=== PATIENT | male | born 1950 | race African-American/Black ===

== ENCOUNTER 2018-12-09 10:29 | Inpatient (IN) | payer MEDICARE, OTHER ==
[2018-12-09] VITALS (405 sets, daily range): BP systolic 117–157; BP diastolic 96–113; PULSE 99–114; TEMP 97.7–98; O2SAT 80–99
[~2018-12-09] VITALS: Ht 185.4 cm; Wt 111.0 kg
[2018-12-09 10:44] LABS: BASO % 0.5 % (0.0-2.0); EOS # 0.1 (0.0-0.7); GRAN % 45.2 % (42.2-75.2); HEMATOCRIT 44.3 % (42.0-52.0); HEMOGLOBIN 14.4 g/dl (13.5-18.0); LYMPH # 2.4 (1.2-3.4); LYMPH % 36.7 % (20.0-51.0); MEAN CELL VOLUME 78 fl (80.0-100.0); MEAN CORPUSCULAR HEMOGLOBIN 25 pg (27.0-31.0); MEAN CORPUSCULAR HGB CONC 33 g/dl (33.0-37.0); MEAN PLATELET VOLUME 11.9 fl (7.4-10.4); MONO % 15.1 % (1.7-9.3); PLATELET COUNT 190 K/mm3 (130-400); RED BLOOD COUNT 5.66 M/mm3 (4.20-5.60)
[2018-12-09 10:50] LABS: INR 1.3 (0.8-3.0); PROTHROMBIN TIME 14.8 SECONDS (9.7-12.8)
[2018-12-09 11:02] LABS: ALBUMIN 4.3 gm/dL (3.5-5.0); BILIRUBIN,TOTAL 1.4 mg/dL (0.0-1.0); CALCIUM 9.4 mg/dL (8.4-10.2); CREATININE, serum 1.01 (0.66-1.25); POTASSIUM 4.8 mmol/L (3.4-5.0); TOTAL PROTEIN 7.2 gm/dL (6.4-8.2)
[2018-12-09 11:26] LABS: TROPONIN-I 0.235 ng/mL (0.000-0.035)
[2018-12-09 11:32] LABS: TSH w REFLEX 0.857 uIU/mL (0.465-4.680)
[2018-12-09 12:52] LABS: COLLECTION METHOD CLEAN CATCH
[2018-12-09 13:22] LABS: MUCOUS Present /lpf; PH 5 (5-8); SQUAMOUS EPITHELIAL 0-2 /hpf; URINE APPEARANCE Clear; URINE BACTERIA None Seen /hpf; URINE BILIRUBIN Negative (NEGATIVE); URINE BLOOD Negative (NEGATIVE); URINE COLOR Yellow; URINE GLUCOSE Negative (NEGATIVE); URINE KETONE Negative (NEGATIVE); URINE LEUKOCYTE ESTERASE Negative (NEGATIVE); URINE NITRATE Negative (NEGATIVE); URINE PROTEIN(semi-quant) Negative (NEGATIVE); URINE RBC 0-2 /hpf; URINE UROBILINOGEN Negative (NEGATIVE)
--- NOTE | 2018-12-09 14:00 | NUR ---
PAGED DR VALDEZ TO NOTIFY HIM OF CARDIOLOGY CONSULT. AWAITING CALL BACK.
--- NOTE | 2018-12-09 14:31 | NUR ---
NOTIFIED DR VALDEZ OF CARDIOLOGY CONSULT
--- NOTE | 2018-12-09 15:30 | NUR ---
ANESTHESIA NOTIFIED OF CONSULT FOR FLY CARDIOVERSION IN AM AT 0800.
[2018-12-10] VITALS (291 sets, daily range): BP systolic 94–142; BP diastolic 61–97; PULSE 50–120; TEMP 97.9–98.9; O2SAT 75–100
[2018-12-10 06:27] LABS: BASO # 0.1 (0.0-0.2); BASO % 0.7 % (0.0-2.0); EOS # 0.1 (0.0-0.7); EOS % 1.9 % (0-4.0); GRAN # 3.8 (1.4-6.5); GRAN % 51.8 % (42.2-75.2); HEMATOCRIT 42.5 % (42.0-52.0); HEMOGLOBIN 13.9 g/dl (13.5-18.0); LYMPH # 2.1 (1.2-3.4); LYMPH % 28.2 % (20.0-51.0); MEAN CELL VOLUME 77 fl (80.0-100.0); MEAN CORPUSCULAR HEMOGLOBIN 25 pg (27.0-31.0); MEAN CORPUSCULAR HGB CONC 33 g/dl (33.0-37.0); MEAN PLATELET VOLUME 12.3 fl (7.4-10.4); MONO # 1.2 (0.1-0.6); MONO % 17.1 % (1.7-9.3); PLATELET COUNT 189 K/mm3 (130-400); RED BLOOD COUNT 5.52 M/mm3 (4.20-5.60); REDCELL DISTRIBUTION WIDTH-CV 17.7 % (11.5-14.5)
[2018-12-10 06:52] LABS: CALCIUM 9.2 mg/dL (8.4-10.2); CREATININE, serum 0.91 (0.66-1.25)
--- NOTE | 2018-12-10 08:00 | NUR ---
Shift assessment complete at this time. Plan of care reviewed with patient at bedside. Additional time taken to address any other needs or concerns. Vitals stable at this time. Pt denies pain or any other discomfort. Bed in low position, call light within reach. will continue to monitor.
--- NOTE | 2018-12-10 08:40 | NUR ---
FLY Cardioversion procedure complete at this time. Pt tolerated procedure well with no changes in vitals signs noted. 200 mg of propofol used for sedation by Scott Osborn CRNA. Time-out performed prior to procedure. Consent and pt identification verified. After FLY, Pt had attempted cardioversion x2 with no conversion. Amiodarone bolus of 150 mg started per direction of Dr. Li. Will continue to monitor.
--- NOTE | 2018-12-10 15:03 | NUR ---
YENIFER met with the patient to discuss discharge plan. The patient lives alone in [place]. He reports independence with ADLs and does not have any DME. The patient does not have a PCP, but was interested in being set up with one in [place]. YENIFER provided the patient with a list of the different providers in [place]. He states that he has not needed to be on medications in the past, but plans to utilize the [facility] in [place]. He does not anticipate any difficulties obtaining his meds. The patient does not have advanced directives, but he states that he is working on getting them completed. He states that he is thinking about designating his family friend, Jeanie Armando (ph#[phone]). He states that she lives in [place]. He states that he has five siblings and that they all live out of state. His sister, Janice Johnson (ph#[phone]), is listed as his next of kin. He states that she lives near [place]. The patient plans to return home upon discharge. YENIFER to continue to follow to assist with getting established with a PCP.
--- NOTE | 2018-12-10 18:25 | NUR ---
Pt up to floor this afternoon from ICU, med rec complete, no C/O pain this afternoon, VS have remained stable.
--- NOTE | 2018-12-10 20:40 | NUR ---
Sitting at bedside. Assessment complete. Lungs clear. Heart sounds irregular but normal pace. Bowels active x4. Pulses present throughout. Bilateral lower leg edema +1. Denies pain. Denies other needs at this time. Call light in reach.
[2018-12-11] VITALS (7 sets, daily range): BP systolic 102–169; BP diastolic 49–91; PULSE 76–120; TEMP 98.2–98.8
--- NOTE | 2018-12-11 00:43 | NUR ---
Telemetry called stating patient pulse in 130s. Patient up in room brushing teeth. Patient returned to bed. Pulse returned to low 100s. Denies needs at this time. call light in reach.
--- NOTE | 2018-12-11 05:24 | NUR ---
Patient had x1 episode of tachycardia due to up performing personal hygiene. Otherwise uneventful night. Resting in bed this AM. Call light in reach.
--- NOTE | 2018-12-11 06:39 | NUR ---
Report given to ELVIA Oliva
[2018-12-11 07:07] LABS: BASO % 0.5 % (0.0-2.0); EOS # 0.2 (0.0-0.7); EOS % 3.2 % (0-4.0); GRAN # 2.7 (1.4-6.5); GRAN % 43.3 % (42.2-75.2); HEMATOCRIT 44.6 % (42.0-52.0); HEMOGLOBIN 14.6 g/dl (13.5-18.0); LYMPH # 2.3 (1.2-3.4); LYMPH % 36.5 % (20.0-51.0); MEAN CELL VOLUME 77 fl (80.0-100.0); MEAN CORPUSCULAR HEMOGLOBIN 25 pg (27.0-31.0); MEAN CORPUSCULAR HGB CONC 33 g/dl (33.0-37.0); MEAN PLATELET VOLUME 12.9 fl (7.4-10.4); MONO % 16.2 % (1.7-9.3); PLATELET COUNT 214 K/mm3 (130-400); REDCELL DISTRIBUTION WIDTH-CV 18.1 % (11.5-14.5)
[2018-12-11 07:38] LABS: CALCIUM 9.4 mg/dL (8.4-10.2); CREATININE, serum 1.11 (0.66-1.25); POTASSIUM 4.1 mmol/L (3.4-5.0)
--- NOTE | 2018-12-11 10:04 | NUR ---
Initial visit; Patient thanked Secondary Education Professor for looking in on him, listening and offering God's blessings.
--- NOTE | 2018-12-11 10:11 | NUR ---
Pt awake and alert upon entry, some C/O pain, shift assessments complete, left pt call light in reach.
--- NOTE | 2018-12-11 16:14 | NUR ---
YENIFER met with the patient to follow up on preference for PCP. The patient states that he would prefer Dr. Fay. YENIFER contacted [facility]. The clinic receptionist reports that Dr. Fay is not taking any new Medicare patient's at this time. YENIFER informed the patient. The patient then preferred Dr. Quinn. YENIFER contacted [facility] and secured the patient an appointment with Dr. Quinn for 12/23 at 1000. YENIFER informed the patient's DEREJE, Brandi, and the community relations assistant of appointment. YENIFER presented and explained the IM form to the patient. The patient verbalized understanding, signed, and he was provided a copy. No other additional needs at this time.
--- NOTE | 2018-12-11 18:00 | NUR ---
Pt resting in room, no C/O pain today, VS have remained stable
--- NOTE | 2018-12-11 20:50 | NUR ---
Sitting at bedside. Assessment complete. Lungs clear. Heart sounds irregular and tachy-patient in Afib on telemetry. Bowels active x4. Pulses strong throughout. Bilateral lower leg edema +1 present. INT left AC without complications. Denies pain. Denies needs at this time. Call light in reach.
[2018-12-12] VITALS (7 sets, daily range): BP systolic 97–115; BP diastolic 69–86; PULSE 73–96
--- NOTE | 2018-12-12 00:34 | NUR ---
Resting in bed. Denied needs. Call light in reach.
--- NOTE | 2018-12-12 05:48 | NUR ---
Patient had uneventful night. Telemetry remained in afib with pulse 100 to 110s. Resting in bed this AM. Call light in reach.
[2018-12-12 06:23] LABS: BASO % 0.7 % (0.0-2.0); EOS # 0.3 (0.0-0.7); EOS % 5.1 % (0-4.0); GRAN # 2.1 (1.4-6.5); GRAN % 35.1 % (42.2-75.2); HEMOGLOBIN 14.6 g/dl (13.5-18.0); LYMPH # 2.5 (1.2-3.4); LYMPH % 41.7 % (20.0-51.0); MEAN CELL VOLUME 75 fl (80.0-100.0); MEAN CORPUSCULAR HEMOGLOBIN 25 pg (27.0-31.0); MEAN CORPUSCULAR HGB CONC 33 g/dl (33.0-37.0); MEAN PLATELET VOLUME 11.9 fl (7.4-10.4); MONO % 17.1 % (1.7-9.3); PLATELET COUNT 245 K/mm3 (130-400); RED BLOOD COUNT 5.84 M/mm3 (4.20-5.60); REDCELL DISTRIBUTION WIDTH-CV 18.3 % (11.5-14.5)
[2018-12-12 06:26] LABS: INR 1.5 (0.8-3.0); PROTHROMBIN TIME 18.2 SECONDS (9.7-12.8)
[2018-12-12 06:29] LABS: PARTIAL THROMBOPLASTIN TIME 29.3 SECONDS (26.0-37.0)
[2018-12-12 06:40] LABS: CALCIUM 9.3 mg/dL (8.4-10.2); CREATININE, serum 1.15 (0.66-1.25); POTASSIUM 4.2 mmol/L (3.4-5.0)
--- NOTE | 2018-12-12 06:46 | NUR ---
Report given to ELVIA Oliva
[2018-12-12] MEDS ORDERED: ELIQUIS 5MG PO (07:52)
[2018-12-12] MEDS ORDERED: ZESTRIL 5MG5 MG PO (07:53)
[2018-12-12] MEDS ORDERED: BETAPACE 120MG120 MG PO (07:53)
--- NOTE | 2018-12-12 08:42 | NUR ---
Pt awake and alert upon entry, no C/O pain at this time, shift assessments complete, left Pt call light in reach, bed in lowest position.
[2018-12-12] MEDS ORDERED: LASIX 20MG TABL20 MG PO (11:29)
--- NOTE | 2018-12-12 15:18 | NUR ---
Pt discharged to home, escorted to entrance, leaving via taxi.
--- NOTE | 2018-12-12 15:21 | NUR ---
Material Carrier contacted [employer] to assist in establishing transportation back to patient's vehicle. No additional concerns at this time.
== END 2018-12-12 15:20 | disposition home or self-care (01) | DRG 281 ==
LOC: COL.ER 10:29 → ICU 12:07 → MEDICAL 12:07
PROVIDERS: Emergency Medicine; Physician Assistant; ADMIT Hospitalist
PROC: 5A2204Z Restoration of Cardiac Rhythm, Single (ICD-10-PCS; principal; 2018-12-10)
PROC: 5A2204Z Restoration of Cardiac Rhythm, Single (ICD-10-PCS; 2018-12-12)
DX: I48.91 Unspecified atrial fibrillation (principal); I21.A1 Myocardial infarction type 2; I50.20 Unspecified systolic (congestive) heart failure; E01.0 Iodine-deficiency related diffuse (endemic) goiter; I11.0 Hypertensive heart disease with heart failure; I08.1 Rheumatic disorders of both mitral and tricuspid valves; J39.8 Other specified diseases of upper respiratory tract; Z87.891 Personal history of nicotine dependence
CPT/HCPCS: 99222-AI; 99231-AI; 99233-AI; A9284; J0282; J1940; J2704; J7030; J7060; Q9967

== ENCOUNTER 2018-12-29 07:12 | Day surgery (SDC) | payer MEDICARE, OTHER ==
[~2018-12-29] VITALS: Ht 185.5 cm; Wt 106.0 kg
[~2018-12-29 07:12] MED LIST: BETAPACE 120MG120 MG PO; ELIQUIS 5MG PO; LASIX 20MG TABL20 MG PO; ZESTRIL 5MG5 MG PO
[2018-12-29] MEDS ORDERED: PRINIVIL5 MG PO (07:52)
[2018-12-29] MEDS ORDERED: LASIX 20MG TABL20 MG PO (07:52)
[2018-12-29] MEDS ORDERED: ELIQUIS 5MG PO (07:52)
[2018-12-29] MEDS ORDERED: BETAPACE 120MG120 MG PO (07:53)
[2018-12-29 07:59] VITALS: BP 129/94; PULSE 65; TEMP 97.6
[2018-12-29] MEDS ORDERED: BETAPACE160 MG PO (08:32)
--- NOTE | 2018-12-29 09:19 | NUR ---
Pt is in SR per Dr. Li. CV and labs cancelled. Pt discharged per ambulation with friend Cielo Kong.
== END 2018-12-29 09:22 | disposition home or self-care (01) ==
LOC: COL.CAR 07:12
DX: I48.0 Paroxysmal atrial fibrillation (principal); I10 Essential (primary) hypertension; I08.0 Rheumatic disorders of both mitral and aortic valves; Z79.01 Long term (current) use of anticoagulants; Z87.891 Personal history of nicotine dependence; Z80.9 Family history of malignant neoplasm, unspecified

== ENCOUNTER → 2022-05-10 | Outpatient (CLI) | payer MEDICARE, OTHER ==
[~2022-05-10] MED LIST changes: +BETAPACE160 MG PO; +PRINIVIL5 MG PO
== END ==
LOC: COL.RAD 09:25
DX: Z13.6 Encounter for screening for cardiovascular disorders (principal)